=== PATIENT | male | born 1960 | race Caucasian/White ===

== ENCOUNTER 2017-10-15 13:17 | Day surgery (SDC) | payer BC ==
[2017-10-15] MEDS ORDERED: fentaNYL 100 MCG/2 ML INJ IVP ONE (13:23)
[2017-10-15] MEDS ORDERED: BENZOCAINE UNIT DOSE SPRAY HURRICAINE MM ONE (13:23)
[2017-10-15] MEDS ORDERED: NS 500 ML IV ONE (13:23)
[2017-10-15] MEDS ORDERED: ATROPINE SULFATE 1 MG/10 ML SYR IVP ONE (13:23)
[2017-10-15] MEDS ORDERED: MIDAZOLAM 2 MG/2 ML VIAL IVP ONE (13:23)
--- NOTE | 2017-10-15 13:47 | PDANEPAE ---
ANE Review of Systems Review of Systems: ANE Patient History - Allergies Allergies/Adverse Reactions: codeine Allergy (Verified 10/15/17 13:23) ezetimibe [From Vytorin] Allergy (Verified 10/15/17 13:23) simvastatin [From Vytorin] Allergy (Verified 10/15/17 13:23) ANE Labs/Vital Signs - Labs Result Diagrams: 10/15/17 13:30 ANE Physical Exam - Airway Neck exam: FROM Mallampati Score: Class 2 Mouth exam: normal dental/mouth exam - Pulmonary Pulmonary: no respiratory distress, no rales or rhonchi, clear to auscultation - Cardiovascular Cardiovascular: irregularly irregular - ASA Status ASA Status: III ANE Anesthesia Plan Anesthesia Plan: GA with mask
[2017-10-15] MEDS ORDERED: PROPOFOL 200 MG/20 ML VIAL ONE (13:51)
[2017-10-15 13:56] LABS: INR 1.6 (0.83-1.16); PROTIME(PATIENT) 19.2 SEC (12.0-15.0)
[2017-10-15] MEDS ORDERED: NALOXONE HCL 0.4 MG/ML INJ IVP PRN (14:04)
--- NOTE | 2017-10-15 14:07 | PDHPUP ---
History & Physical Update H&P update statement: This history and physical update is based on an assessment of the patient which was completed after admission or registration (within 24 hours), but prior to the surgery/procedure.for JOLENE now w CV H&P update: H&P reviewed & patient examined, no change in patient's condition since H&P completed
--- NOTE | 2017-10-15 14:35 | POSTANESTH ---
Post Anesthetic Evaluation Cardiovascular Status: Normal, Stable Respiratory Status: Normal, Stable Level of Consciousness/Mental Status: Moderately Sleepy Pain Control: Adequate, Prn Tx Ordered Nausea/Vomiting Control: Adequate, Prn Tx Ordered Complications Possibly Related to Anesthesia: None Noted
--- NOTE | 2017-10-15 14:38 | CPIP ---
[f rep st] INVASIVE CARDIAC PROCEDURE PROCEDURE: 1. Transesophageal echocardiogram. 2. Cardioversion. DIAGNOSIS: Atrial fibrillation. DESCRIPTION OF PROCEDURE: The patient gave informed consent for the above procedures before he recei vitaliy any anesthetic. He received anesthesia per Anesthesia and had a transesophageal echocardiogram with no complications. The probe was passed very easily and excellent pictures were obtained of the left atrial appendage and there was no sign of clot. Velocities were excellent. We then proceeded to cardioversion at 360 watt seconds with 1 cardioversion converted into sinus rhyt hm and he is waking up as I am dictating. Formal JOLENE note is pending. /[id number]/MODL
--- NOTE | 2017-10-15 15:35 | CPEKG ---
Heart Rate: 53 RR Interval: 1132 P-R Interval: 204 QRSD Interval: 98 QT Interval: 416 QTC Interval: 391 P [place]: 34 QRS [place]: 72 T Wave [place]: 17 EKG Severity - NORMAL ECG - EKG Impression: SINUS RHYTHM Electronically Signed By: Chandra Brooke 16-Oct-2017 09:29:21
== END 2017-10-15 17:34 | disposition home or self-care (01) ==
LOC: FCATH 13:17
PROVIDERS: ATTEND Internal Medicine
DX: I48.0 Paroxysmal atrial fibrillation (principal); I10 Essential (primary) hypertension; E78.5 Hyperlipidemia, unspecified
CPT/HCPCS: J0461; J2250; J2704

== ENCOUNTER 2018-02-25 11:22 | Day surgery (SDC) | payer BC ==
[2018-02-25] MEDS ORDERED: BENZOCAINE UNIT DOSE SPRAY HURRICAINE MM ONE (11:44)
[2018-02-25] MEDS ORDERED: fentaNYL 100 MCG/2 ML INJ IVP ONE (11:44)
[2018-02-25] MEDS ORDERED: NS 500 ML IV ONE (11:44)
[2018-02-25] MEDS ORDERED: MIDAZOLAM 2 MG/2 ML VIAL IVP ONE (11:44)
[2018-02-25] MEDS ORDERED: ATROPINE SULFATE 1 MG/10 ML SYR IVP ONE (11:44)
[2018-02-25 12:05] LABS: INR 1.36 (0.83-1.16); PROTIME(PATIENT) 16.9 SEC (12.0-15.0)
[2018-02-25] MEDS ORDERED: ATROPINE SULFATE 1 MG/10 ML SYR ONE (14:13)
--- NOTE | 2018-02-25 15:01 | PDANEPAE ---
ANE History of Present Illness 57 yo for opal/cv ANE Past Medical History - Cardiovascular History Hx Hypertension: Yes Hx Arrhythmias: Yes Hx Chest Pain: No Hx Coronary Artery / Peripheral Vascular Disease: No Hx CHF / Valvular Disease: No Hx Palpitations: No - Pulmonary History Hx COPD: No Hx Asthma/Reactive Airway Disease: No Hx Recent Upper Respiratory Infection: No Hx Oxygen in Use at Home: No Hx Sleep Apnea: No ANE Review of Systems Review of Systems: - Exercise capacity METS (RN): 4 METS ANE Patient History - Allergies Allergies/Adverse Reactions: codeine Allergy (Verified 10/15/17 13:23) ezetimibe [From Vytorin] Allergy (Verified 10/15/17 13:23) simvastatin [From Vytorin] Allergy (Verified 10/15/17 13:23) - NPO status NPO Status: no food or drink >8 hours - Anes Hx Anes Hx: no prior problems - Smoking Hx Smoking Status: Never smoked ANE Labs/Vital Signs - Labs Result Diagrams: 02/25/18 11:45 - Vital Signs Height: 5 ft 10.87 in Weight: 116.1 kg ANE Physical Exam - Airway Neck exam: FROM Mallampati Score: Class 2 Mouth exam: normal dental/mouth exam - Pulmonary Pulmonary: no respiratory distress - Cardiovascular Cardiovascular: regular rate and rhythym - ASA Status ASA Status: III ANE Anesthesia Plan Anesthesia Plan: GA with mask
[2018-02-25] MEDS ORDERED: SUCCINYLCHOLINE CHLORIDE 200 MG/10 ML SYR IVP ONE (15:13)
[2018-02-25] MEDS ORDERED: PROPOFOL 200 MG/20 ML VIAL ONE (15:13)
--- NOTE | 2018-02-25 15:29 | PDHPUP ---
History & Physical Update H&P update statement: This history and physical update is based on an assessment of the patient which was completed after admission or registration (within 24 hours), but prior to the surgery/procedure. H&P update: H&P reviewed & patient examined, no change in patient's condition since H&P completed
--- NOTE | 2018-02-25 15:29 | PDTEE1 ---
JOLENE Cardioversion Procedure Procedure: electrical cardioversion, transesophageal echo Indications: atrial fibrillation Consent: signed and in chart Anticoagulation: xarelto Procedural Details: Pads were placed in anterior-posterior position. JOLENE probe was advanced and standard images obtained. There is no evidence of left atrial or left atrial appendage thrombus. Synchronized cardioversion attempt #1: 200J Results: normal sinus rhythm Conclusions: successful cardioversion
--- NOTE | 2018-02-25 15:29 | POSTANESTH ---
Post Anesthetic Evaluation Cardiovascular Status: Normal, Stable Respiratory Status: Tx Decrease in SpO2 Level of Consciousness/Mental Status: Can Participate in Eval Pain Control: Adequate, Prn Tx Ordered Nausea/Vomiting Control: Adequate, Prn Tx Ordered Complications Possibly Related to Anesthesia: None Noted
--- NOTE | 2018-02-25 16:28 | ECHO ---
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 Normal global systolic LV function. Left atrial enlargement. An agitated saline study was performed and was negative for intracardiac shunting. No thrombus in left appendage. Mild mitral valve regurgitation is present. Trivial aortic valve regurgitation. The tricuspid valve is normal in appearance and function. Study was followed by cardioversion. Measurements: Chambers Valvular Assessment AV/MV Valvular Assessment TV/PV Normal Normal Normal Name Value Range Name Value Range Name Value Range Additional Measurements: Findings: Left Ventricle: Normal size left ventricle. Normal global systolic LV function. Right Ventricle: Normal size right ventricle. Normal RV function. Left Atrium: Patient: PONCHO SLAUGHTER Study Date: 02/25/2018 Page 1 of 2 02:24 PM Left atrial enlargement. An agitated saline study was performed and was negative for intracardiac shunting. Left Atrial Appendage: The left atrial appendage is unilobular. No thrombus in left appendage. Right Atrium: Right atrial enlargement. Mitral Valve: The mitral valve is normal in appearance and function. Mild mitral valve regurgitation is present. No mitral stenosis is present. Aortic Valve: The aortic valve is tri-leaflet. Trivial aortic valve regurgitation. No aortic valve stenosis is present. Tricuspid Valve: The tricuspid valve is normal in appearance and function. Pulmonic Valve: The pulmonic valve is normal in appearance and function. l1n (No Signature Object) Patient: PONCHO SLAUGHTER Study Date: 02/25/2018 Page 2 of 2 02:24 PM [id number]
--- NOTE | 2018-02-26 11:29 | CPEKG ---
Test Reason : OPEN Blood Pressure : / mmHG Vent. Rate : 045 BPM Atrial Rate : 045 BPM P-R Int : 217 ms QRS Dur : 101 ms QT Int : 442 ms P-R-T Axes : 019 057 001 degrees QTc Int : 383 ms Sinus bradycardia Borderline prolonged MO interval Confirmed by Nessa Smiley ([id number]) on 02/26/2018 11:28:59 AM Referred By: Confirmed By:Nessa Smiley
== END 2018-02-25 16:35 | disposition home or self-care (01) ==
LOC: FCATH 11:22
PROVIDERS: ATTEND Internal Medicine Cardiovascular Disease
PROC: B245ZZ4 Ultrasonography of Left Heart, Transesophageal (ICD-10-PCS; principal; 2018-02-25)
PROC: 5A2204Z Restoration of Cardiac Rhythm, Single (ICD-10-PCS; principal; 2018-02-25)
DX: I48.91 Unspecified atrial fibrillation (principal); I10 Essential (primary) hypertension; E78.5 Hyperlipidemia, unspecified; F41.9 Anxiety disorder, unspecified
CPT/HCPCS: J0330; J0461; J2704

== ENCOUNTER → 2018-05-13 | Outpatient (CLI) | payer BC ==
[~2018-05-13] MED LIST: IOPAMIDOL (ISOVUE 370) 100 ML BTL IV ONE
== END ==
LOC: FIMAGING 13:04
PROVIDERS: ATTEND Internal Medicine Cardiovascular Disease
DX: I51.7 Cardiomegaly (principal); R91.1 Solitary pulmonary nodule
CPT/HCPCS: Q9967

== ENCOUNTER → 2018-05-17 | Day surgery (SDC) | payer BC ==
[~2018-05-17] MED LIST changes: -IOPAMIDOL (ISOVUE 370) 100 ML BTL IV ONE; +NS 1,000 ML IV ONE
[2018-05-17 12:05] LABS: PLATELET COUNT 169 10^3/uL (150-400)
[2018-05-17 12:27] LABS: INR 0.98 (0.83-1.16); PROTIME(PATIENT) 13.2 SEC (12.0-15.0)
--- NOTE | 2018-05-17 12:37 | PDGENHP ---
<Jackie Elaine - Last Filed: 05/17/18 12:38> History & Physical Chief Complaint: Atrial fibrillation History of Present Illness: Increased frequency of paroxysmal atrial fibrillation requiring recent cardioversion. Relevant Physical Exam: General: A&OX4, no apparent distress. Respiratory: CTA. Cardiac: Regular rate and rhythm, S1, S2, bradycardic at 43bpm. Extremities: Pulses 2+ bilaterally, no edema Cardiorespiratory Assessment: Proceed with JOLENE and AF ablation as planned today. Will re-start Xarelto post-procedure. <Nuno Fairchild - Last Filed: 05/17/18 16:42> History & Physical Cardiorespiratory Assessment: Addendum S Gurinder 4.42 PM - procedure rescheduled for
--- NOTE | 2018-05-18 13:57 | CPEKG ---
Test Reason : OPEN Blood Pressure : / mmHG Vent. Rate : 042 BPM Atrial Rate : 042 BPM P-R Int : 225 ms QRS Dur : 099 ms QT Int : 460 ms P-R-T Axes : 040 070 018 degrees QTc Int : 385 ms Sinus bradycardia Prolonged PA interval Confirmed by Ang Marshall ([id number]) on 05/18/2018 1:56:58 PM Referred By: Confirmed By:Ang Marshall
== END ==
LOC: FCATH 11:32
PROVIDERS: ATTEND Internal Medicine Cardiovascular Disease
DX: I48.0 Paroxysmal atrial fibrillation (principal); I10 Essential (primary) hypertension; E78.5 Hyperlipidemia, unspecified; F32.9 Major depressive disorder, single episode, unspecified; F41.9 Anxiety disorder, unspecified; G47.00 Insomnia, unspecified; Z82.3 Family history of stroke; Z53.8 Procedure and treatment not carried out for other reasons

== ENCOUNTER 2018-05-25 07:00 | Observation (INO) | payer BC ==
[2018-05-25] MEDS ORDERED: NS 1,000 ML IV ONE (07:03)
[2018-05-25 07:31] LABS: PLATELET COUNT 151 10^3/uL (150-400)
[2018-05-25 07:40] LABS: INR 0.93 (0.83-1.16); PROTIME(PATIENT) 12.7 SEC (12.0-15.0)
[2018-05-25] MEDS ORDERED: MIDAZOLAM 2 MG/2 ML VIAL IVP ONE (07:52)
--- NOTE | 2018-05-25 07:52 | PDANEPAE ---
ANE History of Present Illness A-fib with RVR ANE Past Medical History - Cardiovascular History Hx Hypertension: Yes Hx Arrhythmias: Yes Hx Chest Pain: No Hx Coronary Artery / Peripheral Vascular Disease: No Hx CHF / Valvular Disease: No Hx Palpitations: No - Pulmonary History Hx COPD: No Hx Asthma/Reactive Airway Disease: No Hx Recent Upper Respiratory Infection: No Hx Oxygen in Use at Home: No Hx Sleep Apnea: No Pulmonary History Comment: suspected JIM - Neurologic History Hx Cerebrovascular Accident: No Hx Seizures: No Hx Dementia: No - Endocrine History Hx Diabetes: No Hypothyroid: No Hyperthyroid: No Obesity: moderate - Renal History Hx Renal Disorders: No - Liver History Hx Hepatic Disorders: No - Neurological & Psychiatric Hx Hx Neurological and Psychiatric Disorders: No ANE Review of Systems Review of systems is: negative Review of Systems: - Exercise capacity Exercise capacity: >=4 METS ANE Patient History - Allergies Allergies/Adverse Reactions: codeine Allergy (Verified 05/10/18 14:16) Tachycardia ezetimibe [From Vytorin] Allergy (Verified 05/10/18 14:18) Increased LFT'S simvastatin [From Vytorin] Allergy (Verified 05/10/18 14:18) Increased LFT'S - Home Medications Home medications: home medication list seen and reviewed Home Medications: Atorvastatin Calcium [Lipitor 10 mg (*)] 10 mg PO DAILY 02/25/18 [Last Taken Unknown] Lisinopril [Zestril 10 mg (*)] 10 mg PO DAILY 02/25/18 [Last Taken Unknown] Metoprolol Tartrate [Lopressor 25 mg (*)] 25 mg PO DAILY 02/25/18 [Last Taken Unknown] Metoprolol Tartrate [Lopressor 50 mg (*)] 50 mg PO HS 02/25/18 [Last Taken Unknown] Rivaroxaban [Xarelto 10mg (*)] 20 mg PO HS 02/25/18 [Last Taken 05/21/18] buPROPion XL [Wellbutrin Xl] 150 mg PO DAILY 02/25/18 [Last Taken Unknown] clonazePAM [klonoPIN (*)] 1 mg PO DAILY PRN 02/25/18 [Last Taken Unknown] - NPO status NPO Status: no food or drink >8 hours - Anes Hx Anes Hx: no prior problems - Smoking Hx Smoking Status: Never smoked - Family Anes Hx Family Anes Hx: none ANE Labs/Vital Signs - Labs Result Diagrams: 05/25/18 07:20 05/25/18 07:20 - Vital Signs Vital Signs: reviewed preoperatively; see RN documention for details Height: 180 cm Weight: 113.4 kg ANE Physical Exam - Airway Neck exam: FROM Mallampati Score: Class 2 Mouth exam: normal dental/mouth exam - Pulmonary Pulmonary: no respiratory distress - Cardiovascular Cardiovascular: regular rate and rhythym - ASA Status ASA Status: II ANE Anesthesia Plan Anesthesia Plan: general endotracheal anesthesia
[2018-05-25] MEDS ORDERED: BUPIVACAINE 0.75% 10 ML SDV ONE (07:54)
[2018-05-25] MEDS ORDERED: HEPARIN 10,000 UNIT/10 ML MDV (1,000 UNIT/ML) ONE (07:54)
[2018-05-25] MEDS ORDERED: LIDOCAINE 1% 300 MG/30 ML SDV ONE (07:54)
[2018-05-25] MEDS ORDERED: IOPAMIDOL (ISOVUE-300) 100 ML BTL ONE (07:55)
[2018-05-25] MEDS ORDERED: HEPARIN/DEXTROSE 25,000 UNIT/500 ML BAG ONE (07:55)
[2018-05-25] MEDS ORDERED: fentaNYL 100 MCG/2 ML INJ ONE ×3 (08:15→10:02)
[2018-05-25] MEDS ORDERED: PROPOFOL 200 MG/20 ML VIAL ONE ×2 (08:15→10:06)
[2018-05-25] MEDS ORDERED: ROCURONIUM 50 MG/5 ML VIAL ONE (08:19)
--- NOTE | 2018-05-25 08:20 | PDGENHP ---
History & Physical Chief Complaint: Atrial fibrillation History of Present Illness: Increased frequency of symptomatic atrial fibrillation, recently requiring cardioversion. Relevant Physical Exam: General: A&Ox4, no apparent distress. Respiratory: CTA. Cardiac: Regular rate and rhythm, S1, S2, sinus bradycardia. Extremities : No edema, pulses 2+ bilaterally Cardiorespiratory Assessment: Proceed with JOLENE and AF ablation as planned for today. Post-procedure instruction reviewed in detail with patient and his including activity restrictions, expected chest discomfort, and diagnostic testing planned for tomorrow morning. Will plan to re-start his Xarelto 6hrs post-procedure.
[2018-05-25] MEDS ORDERED: MIDAZOLAM 2 MG/2 ML VIAL ONE (08:23)
[2018-05-25] MEDS ORDERED: DEXAMETHASONE 4 MG/ML VIAL ONE ×2 (08:25)
[2018-05-25] MEDS ORDERED: ONDANSETRON 4 MG/2 ML VIAL ONE (08:25)
[2018-05-25] MEDS ORDERED: SEVOFLURANE 250 ML BOTTLE IH ONE (09:07)
[2018-05-25] MEDS ORDERED: ePHEDrine SULFATE 25 MG/5 ML SYR ONE (10:19)
[2018-05-25] MEDS ORDERED: PROTAMINE SULFATE 50 MG/5 ML VIAL IVP ONE (10:59)
[2018-05-25] MEDS ORDERED: clonazePAM 1 MG TAB PO PRN (11:10)
--- NOTE | 2018-05-25 11:18 | EPPROC ---
Electrophysiology Procedure Note: ELECTROPHYSIOLOGIC STUDY AND BALLOON-CATHETER MEDIATED CRYOABLATION FOR PAROXYSMAL ATRIAL FIBRILLATION Procedures performed: 59943-18 EP evaluation with RA/RV/LA pace/record, with arrhythmia induction 54126-39 EP evaluation with RA/RV pace record, insert/reposition catheter, with arrhythmia induction 34504 Atrial fibrillation ablation Intracardiac echocardiogram Transseptal puncture Fluoroscopy INDICATION: Paroxysmal atrial fibrillation PROCEDURE: The patient arrived in the Electrophysiology Laboratory in the fasting state. The right groin, left groin and right infraclavicular area were prepped and draped in the usual sterile fashion. Anesthesiologist administered general anesthesia. All catheters were placed percutaneously using the Seldinger technique and advanced into position under fluoroscopic guidance. One #7 Slovak deflectable octapolar electrode catheter was placed in the His-bundle position via the left femoral vein (2mm spacing, IVC electrode for unipolar recordings). This catheter was placed in the coronary sinus after transseptal puncture and later placed in the SVC-R subclavian vein junction to pace the right phrenic nerve during right pulmonary vein ablation. One #8 Slovak AcuNaV ultrasound catheter was placed in the left femoral vein and advanced into the right atrium. Programmed stimulation was performed from the right atrium, left atrium (CS) and right ventricle. Intracardiac echo evaluation of the left atrium and pulmonary veins was performed. Baseline ACT was drawn and heparin bolus was administered and heparin drip was started prior to transseptal puncture. ACT was checked every 15 minutes and maintained in the range of 350-400 seconds. One 14Fr short sheath was placed in the right femoral vein. One 8Fr SL1 sheath was advanced into the right atrium via the 14Fr short sheath. Transseptal puncture was performed under intracardiac ultrasound, fluoroscopic and hemodynamic guidance placing the sheath into the left atrium. [place] RF needle ( C0 curve) was used. The mean left atrial pressure was 12 mmHg. Pulmonary vein angiogram was done using SL1 sheath. CT angiography of pulmonary veins was done previously. There were distinct LSPV, LIPV, RSPV and RIPV. There was small left middle pulmonic vein. The SL1 sheath was exchanged for a [employer] Flexcath sheath using an Amplatz stiff guide wire. A 28 mm Cryoballoon catheter with a 20 mm Achieve catheter was placed via the sheath into the left atrium. Intracardiac ultrasound and PV angiograms were used to assist in placing the mapping catheter at the antrum of the pulmonary veins. All pulmonary veins were isolated successfully using cryoballoon ablation using freeze/thaw/freeze cycles at 2-3-minute intervals, with good [id number] of isolation. Coumadin ridge/Ligament of Jeancarlos region was ablated. Pre and post pulmonary vein recordings were measured on the spiral Achieve catheter to ensure complete pulmonary vein isolation. During the right-sided ablation, phrenic nerve pacing was performed to assess the phrenic nerve strength ( manually and with ICE visualization of liver movement during phrenic capture) and the phrenic nerve was intact throughout the right-sided ablation and at the end of the procedure. An esophageal temperature probe (12 electrode, Circa) was placed by the anesthesiologist at the beginning of the procedure. Esophageal temperature was monitored continuously and cryoablation was interrupted if esophageal temperature was <15 C. Cryoapplications 11 total cryoablation time 1731 s. LMPV was isolated while isolating LSPV and LIPV. ICE imaging post ablation was consistent with pre ablation imaging with no changes noted, moreover there was no left atrial/left ventricular thrombus and no pericardial effusion. The catheters were withdrawn. Protamine was given. Venous vascular access sheaths were removed in the EP lab after placing subcutaneous pursestring suture. Arterial sheath was left in place. The patient was recovered from anesthesia. There were no complications. The patient was arousable and moving all four extremities at the end of the procedure. CONCLUSIONS: 1. Paroxysmal atrial fibrillation. 2. Successful pulmonary vein isolation procedure (left and right pulmonary vein antrum) using cryoballoon ablation. 3. No apparent complications.
--- NOTE | 2018-05-25 11:43 | POSTANESTH ---
Post Anesthetic Evaluation Cardiovascular Status: Normal, Stable Respiratory Status: Normal, Stable Level of Consciousness/Mental Status: Can Participate in Eval Pain Control: Adequate, Prn Tx Ordered Nausea/Vomiting Control: Adequate, Prn Tx Ordered Complications Possibly Related to Anesthesia: None Noted
[2018-05-25] MEDS ORDERED: CEPACOL LOZENGE PO PRN (16:34)
[2018-05-25] MEDS: RIVAROXABAN 10 MG TAB PO SCH ×2 (16:59→21:00)
[2018-05-25] MEDS: ATORVASTATIN CALCIUM 10 MG TAB PO SCH (21:00)
[2018-05-26 06:31] LABS: PLATELET COUNT 145 10^3/uL (150-400)
[2018-05-26] MEDS: ATORVASTATIN CALCIUM 10 MG TAB PO SCH (08:44)
[2018-05-26] MEDS ORDERED: buPROPion XL 150 MG TAB PO SCH (09:00)
[2018-05-26] MEDS ORDERED: LISINOPRIL 10 MG TAB PO SCH (09:00)
--- NOTE | 2018-05-26 09:36 | CPEKG ---
Test Reason : OPEN Blood Pressure : / mmHG Vent. Rate : 046 BPM Atrial Rate : 048 BPM P-R Int : 219 ms QRS Dur : 101 ms QT Int : 427 ms P-R-T Axes : 034 061 007 degrees QTc Int : 374 ms Sinus bradycardia Borderline prolonged [place] interval Confirmed by Jules Yo ([id number]) on 05/26/2018 9:36:34 AM Referred By: Confirmed By:Jules Yo
--- NOTE | 2018-05-26 09:41 | CPEKG ---
Test Reason : OPEN Blood Pressure : / mmHG Vent. Rate : 060 BPM Atrial Rate : 059 BPM P-R Int : 199 ms QRS Dur : 101 ms QT Int : 417 ms P-R-T Axes : 016 075 011 degrees QTc Int : 417 ms Sinus rhythm Confirmed by Jules Yo ([id number]) on 05/26/2018 9:40:34 AM Referred By: Confirmed By:Jules Yo
--- NOTE | 2018-05-26 09:45 | CPEKG ---
Test Reason : OPEN Blood Pressure : / mmHG Vent. Rate : 061 BPM Atrial Rate : 061 BPM P-R Int : 208 ms QRS Dur : 100 ms QT Int : 412 ms P-R-T Axes : 032 049 009 degrees QTc Int : 415 ms Sinus rhythm Borderline prolonged LA interval Confirmed by Jules Yo ([id number]) on 05/26/2018 9:44:55 AM Referred By: Confirmed By:Jules Yo
[2018-05-26 10:21] VITALS: BP 124/51
--- NOTE | 2018-05-26 12:30 | ECHO ---
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 Normal global systolic LV function. EF is 67 %. Normal diastolic LV function. The left atrium is severely dilated. The right atrium is mildly dilated. Mild mitral valve regurgitation is present. No pericardial effusion. Measurements: Chambers Valvular Assessment AV/MV Valvular Assessment TV/PV Normal Normal Normal Name Value Range Name Value Range Name Value Range Ao Ambar (2D): 3.1 cm (1.4 cm-2.6 AV Vmax: 1.44 m/s (1 m/s-1.7 PV Vmax: 0.90 m/s (0.6 m/s-0.9 cm) m/s) m/s) IVSd (2D): 1.4 cm (0.6 cm-1.1 AV maxP mmHg ( - ) PV PGmax: 3 mmHg ( - ) cm) AV meanP mmHg ( - ) LVDd (2D): 4.1 cm (4.2 cm-5.9 MARSHAL (VTI): 3.5 cm ( - ) cm) MV E Vmax: 0.92 m/s ( - ) LVDs (2D): 2.8 cm (2.1 cm-4 MV A Vmax: 0.52 m/s ( - ) cm) MV E/A: 1.77 ( - ) LVPWd (2D): 1.2 cm (0.6 cm-1 cm) MV PHT: 0.051 s ( - ) LVOTd 2.3 cm 2.3 cm mm MVA (PHT): 4.3 s ( - ) LVEF (BP): 67 % (>=55 %) RVDd(2D): 3.5 cm (1.9 cm-3.8 cmmm) Continued Measurements: Chambers Valvular Assessment AV/MV Patient: PONCHO SLAUGHTER Study Date: 05/26/2018 Page 1 of 2 11:25 AM Name Value Name Value LADs: 4.6 cm MV DecTime: 183 m/s LADs Lon.6 cm MV E' Septal: 0.09 m/s LA Area: 29.5 cm2 MV E/E' Septal: 9.80 LA Volume: 112 ml MV E/E' Lateral: 7.50 LA Volume Index: 48.3 ml/m2 RA Area: 22.7 cm2 Additional Vessels Name Value Ao Ascendin.2 cm Findings: Left Ventricle: Normal size left ventricle. Mild concentric LV hypertrophy. Normal global systolic LV function. EF is 67 %. No regional wall motion abnormality. Normal diastolic LV function. Right Ventricle: Normal size right ventricle. Normal RV function. Left Atrium: The left atrium is severely dilated. Right Atrium: The right atrium is mildly dilated. Mitral Valve: The mitral valve is normal in appearance and function. Mild mitral valve regurgitation is present. No mitral stenosis is present. Aortic Valve: The aortic valve is tri-leaflet. There is no significant aortic valve regurgitation. No aortic valve stenosis is present. Tricuspid Valve: The tricuspid valve is normal in appearance and function. Trivial tricuspid valve regurgitation. Pulmonic Valve: The pulmonic valve is normal in appearance and function. There is no pulmonic regurgitation seen. Aorta: The aorta is normal. Normal size aortic root measuring 3.1 cm. Normal size ascending aorta measuring 3.2 cm. IVC: The IVC is normal sized. Pericardium: No pericardial effusion. No pleural effusion. (No Signature Object) Patient: PONCHO SLAUGHTER Study Date: 05/26/2018 Page 2 of 2 11:25 AM [id number]
--- NOTE | 2018-05-27 04:30 | GDS ---
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 ADMISSION DIAGNOSES: Paroxysmal atrial fibrillation. DISCHARGE DIAGNOSIS: Atrial fibrillation, status post successful ablation. PROCEDURES PERFORMED DURING HOSPITALIZATION: 1. Electrophysiology study. 2. Cryoballoon pulmonary vein isolation. 3. Echocardiogram. 4. Electrocardiogram. HOSPITAL COURSE: Patient presented 05/25/2018, for atrial fibrillation ablation in the setting of in creasing frequency of atrial fibrillation requiring recent cardioversions x2. He underwent successfu l balloon catheter-mediated cryoablation for paroxysmal atrial fibrillation with Dr. Nuno Fairchild. The re were no intra-procedure complications. He has done very well in the postprocedure setting with ve ry mild chest discomfort overnight. This has resolved as of this morning, and the patient has been u p ambulating around his room this morning without issue. He is appropriate and stable for discharge home today. CURRENT PHYSICAL EXAMINATION: GENERAL: Alert and oriented x4, no apparent distress. VITAL SIGNS: Blood pressure 123/58, heart rate 61, SpO2 92% on room air, temp 36.8. RESPIRATORY: Lungs are clear to auscultation without adventitious breath sounds. CARDIAC: Normal S1 and S2. No S3, S4, or murm urs. Rhythm is regular. ABDOMEN: Normoactive bowel sounds times all 4 quadrants. No masses or ten derness. Abdomen is soft to palpation. SKIN: [place], warm, dry, without cyanosis, clubbing, or perip heral edema. EXTREMITIES: Bilateral pursestring sutures removed intact without evidence of hematoma , redness, oozing, swelling, or warmth. Pulses are 2+ bilaterally, no edema. LABORATORY STUDIES: Drawn today: CBC and BMP are stable compared to pre procedure. Troponin is 3.5 9, this is to be expected in the postprocedure setting. PROCEDURES: Electrophysiology study and atrial fibrillation ablation as mentioned above. Preliminar y echocardiogram done this morning demonstrates normal left ventricular systolic function without new wall motion abnormalities or pericardial effusion. Electrocardiogram done this morning demonstrates normal sinus rhythm without new ST-T wave for IA interval abnormalities. DISCHARGE DISPOSITION: Patient will be discharged home in stable condition. He is under activity re strictions as below. DISCHARGE MEDICATIONS: Please see discharge medication reconciliation sheet for full details. Mc rivas note, patient has been restarted on his Xarelto and omeprazole. DISCHARGE INSTRUCTIONS: Post atrial fibrillation ablation instructions reviewed with patient in deta [place]. We discussed activity restrictions including lifting no more than 10 pounds and avoidance of sub merged bathing for 10 days. He will get up and walk around every 45 minutes for 45 days. He will av oid unpressurized air travel or scuba diving for the next 6 months, and he will present to our clinic for an echocardiogram prior to engaging in either of these activities. We also reviewed bleeding pr ecautions, medication compliance, monitoring for signs and symptoms of infection, monitoring for atri oesophageal fistula, and monitoring for sustained arrhythmias. At the time of discharge, patient daryl balized understanding regarding all discharge instructions without questions or concerns. He has a smiley visit scheduled with Dr. Fairchild on June 10 at 2:30 p.m., and he will contact our clinic wit h any new or concerning symptoms prior to his upcoming visit. /[id number]/[id number]
== END 2018-05-26 12:40 | disposition home or self-care (01) ==
LOC: FCATH 07:00 → F2N 11:30 → INTOOBSV 11:30
PROVIDERS: ADMIT Internal Medicine Cardiovascular Disease; ATTEND Internal Medicine Cardiovascular Disease
DX: I48.0 Paroxysmal atrial fibrillation (principal); Z23 Encounter for immunization
CPT/HCPCS: 90471; 93005; 93306; 93312; 93613; 93656; 93662; C1893; G0378; C1730; C1731; C1732; C1733; C1759; C1766; G0008; J1100; J1644; J2250; J2405; J2704; J2720; J3010; Q9967